=== PATIENT | male | born 1990 | race Hispanic/Latino ===

== ENCOUNTER 2020-04-05 16:42 | Day surgery (SDC) | payer OTHER ==
[~2020-04-05] VITALS: Ht 172.7 cm; Wt 80.3 kg
[2020-04-05 18:00] LABS: BASO # 0.1 10^3/uL (0.0-0.2); BASO % 0.4 % (0.0-1.0); EOS # 0.3 10^3/uL (0.0-0.5); EOS % 2.2 % (0.0-3.0); HEMATOCRIT 48.6 % (42.0-52.0); HEMOGLOBIN 15.7 g/dl (13.5-17.5); LYMPH # 3.1 10^3/uL (1.5-5.0); LYMPH % 24.9 % (24.0-44.0); MEAN CORPUSCULAR HEMOGLOBIN 29.1 pg (27.0-33.0); MEAN CORPUSCULAR HGB CONC 32.3 g/dl (32.0-36.5); MONO # 1.4 10^3/uL (0.0-0.8); MONO % 11.1 % (0.0-5.0); NEUTROPHILS # 7.7 10^3/uL (1.5-8.5); NEUTROPHILS % 61.2 % (36.0-66.0); PLATELET COUNT, AUTOMATED 239 10^3/uL (150-450); WHITE BLOOD COUNT 12.5 10^3/uL (4.0-10.0)
[2020-04-05] MEDS ORDERED: NS 1,000 ML IV ONE (18:00)
[2020-04-05] MEDS ORDERED: KETOROLAC 30 MG/ML 1ML VIAL IV ONE (18:00)
[2020-04-05] MEDS ORDERED: ONDANSETRON 4MG/2ML VIAL IV ONE (18:00)
[2020-04-05] MEDS ORDERED: ISOVUE-370 76% 100ML VIAL As Ordered ONE (18:19)
[2020-04-05 18:30] LABS: BILIRUBIN,DIRECT 0.1 MG/DL (0.0-0.2); BILIRUBIN,TOTAL 0.4 MG/DL (0.2-1.0); TOTAL PROTEIN 7.9 GM/DL (6.4-8.2)
--- NOTE | 2020-04-05 19:04 | REPVR ---
PROCEDURE INFORMATION: Exam: CT Abdomen And Pelvis With Contrast Exam date and time: 04/05/2020 6:17 PM Age: 29 years old Clinical indication: Abdominal pain; Localized; Right lower quadrant (rlq); Additional info: Right sided abd pain R/O infectious process TECHNIQUE: Imaging protocol: Computed tomography of the abdomen and pelvis with intravenous contrast. Radiation optimization: All CT scans at this facility use at least one of these dose optimization techniques: automated exposure control; mA and/or kV adjustment per patient size (includes targeted exams where dose is matched to clinical indication); or iterative reconstruction. Contrast material: ISOVUE 370; Contrast volume: 100 ml; Contrast route: INTRAVENOUS (IV); COMPARISON: No relevant prior studies available. FINDINGS: Lungs: 2 mm nodule within the posterolateral right lower lobe (image 17 of series 204) and pleural based nodule measuring 4 mm within the posterior left lower lobe (image 1 of series 204). No basilar consolidation. Liver: Unremarkable. No mass. Gallbladder and bile ducts: Unremarkable. No calcified stones. No ductal dilation. Pancreas: Unremarkable. No ductal dilation. Spleen: Unremarkable. No splenomegaly. Adrenal glands: Normal. No mass. Kidneys and ureters: Unremarkable. No stones. No hydronephrosis. Stomach and bowel: Unremarkable. No obstruction. No mucosal thickening. Appendix: The appendix is retrocecal. The appendix is dilated measuring up to 13.5 mm in diameter. There is appendix wall thickening and mucosal hyperenhancement as well as periappendiceal fluid and inflammation. The findings are consistent with acute appendicitis. No calcified appendicolith. Intraperitoneal space: Trace fluid within the posterior lower pelvis. No free intraperitoneal air. No abdominopelvic abscess. Vasculature: Unremarkable. No abdominal aortic aneurysm. Lymph nodes: Unremarkable. No enlarged lymph nodes. Urinary bladder: Unremarkable as visualized. Reproductive: Unremarkable as visualized. Bones/joints: No acute fracture. Soft tissues: Unremarkable. IMPRESSION: 1. Acute appendicitis. 2. Bilateral lower lobe pulmonary nodules measuring 2 mm and 4 mm. If the patient does not have known cancer, follow up should be based on clinical information because of the low risk of cancer in this age group. (Reference: Misbah) REFERENCES: Misbah Owusu et al. Guidelines for Management of Incidental Pulmonary Nodules Detected on CT Images: From the Fleischner Society 2017. Radiology. 2017;284(1):228-243. Electronically signed by: Tenzin Omalley On 04/05/2020 19:04:35 PM
[2020-04-05] MEDS ORDERED: KETOROLAC 60MG 2ML VIAL As Ordered ONE (19:52)
[2020-04-05] MEDS ORDERED: MIDAZOLAM INJ 2MG/2ML VIAL (J2250 PER 1MG) As Ordered ONE (19:52)
[2020-04-05] MEDS ORDERED: ACETAMINOPHEN 1000MG 100ML IV BTL (OFIRMEV) (J0131 PER 10MG) As Ordered ONE (19:52)
[2020-04-05] MEDS ORDERED: SUGAMMADEX SODIUM 500 MG/5 ML VIAL (BRIDION) As Ordered ONE (19:52)
[2020-04-05] MEDS ORDERED: dexameTHASONE 4 MG/ML 1ML VIAL (J1100 PER 1MG) As Ordered ONE (19:52)
[2020-04-05] MEDS ORDERED: fentaNYL 100 MCG/2 ML INJECTION (J3010) As Ordered ONE ×3 (19:52→22:53)
[2020-04-05] MEDS ORDERED: ROCURONIUM BROMIDE 50 MG/5 ML VIAL As Ordered ONE (19:52)
[2020-04-05] MEDS ORDERED: propofoL 200 MG/20 ML VIAL As Ordered ONE (19:52)
[2020-04-05] MEDS ORDERED: ONDANSETRON 4MG/2ML VIAL As Ordered ONE (19:52)
[2020-04-05] MEDS ORDERED: LIDOCAINE 2% 100MG/5ML SDV (FOR ANES.) As Ordered ONE (19:52)
[2020-04-05] MEDS ORDERED: BUPIVACAINE HCL 0.25% 30ML VIAL As Ordered ONE (20:25)
[2020-04-05] MEDS ORDERED: NORCO, ANEXSIA 5/325MG TABLET (HYDROcodone/ACETAMINOPHEN) PO PRN ×2 (21:30)
[2020-04-05] MEDS ORDERED: KETOROLAC 30 MG/ML 1ML VIAL IV PRN (21:30)
[2020-04-05] MEDS ORDERED: ONDANSETRON 4MG/2ML VIAL IV PRN ×2 (21:30→23:00)
[2020-04-05] MEDS ORDERED: ZOSYN 3.375GM VIAL (J2543) As Ordered ONE (21:44)
[2020-04-05] MEDS ORDERED: ESMOLOL INJ 100MG/10ML VIAL As Ordered ONE (22:00)
--- NOTE | 2020-04-05 22:01 | HPE ---
HISTORY AND PHYSICAL DATE OF ADMISSION: 04/05/2020 CHIEF COMPLAINT: Right lower quadrant pain. HISTORY OF PRESENT ILLNESS: The patient is a 29-year-old male who presents with right lower quadrant pain that started around 3:00 or 4:00 this morning. The pain is present, associated with nausea, no vomiting. He does have some chills but no fevers. No problems with urination or bowel movements. No recent travel or trauma. No changes in diet or activity or medications. No previous abdominal surgeries. PAST MEDICAL HISTORY: The patient's past medical history is negative. PAST SURGICAL HISTORY: The patient's past surgical history is negative. ALLERGIES: None. HOME MEDICATIONS: None. SOCIAL HISTORY: Denies drug, alcohol, tobacco abuse. He does smoke some marijuana. REVIEW OF SYSTEMS: Pertinent positives and negatives as stated in the HPI. FAMILY HISTORY: Noncontributory. PHYSICAL EXAMINATION: GENERAL APPEARANCE: Alert and oriented x3. In no acute distress. VITAL SIGNS: Temperature 97.4, pulse 80, respirations 17, blood pressure 112/69. Pulse oximetry 100% on room air. HEENT: Pupils are equal, round and reactive to light and accommodation. HEART: S1, S2, regular rate and rhythm. LUNGS: Clear to auscultation bilaterally. ABDOMEN: Soft, tender to palpation right lower quadrant with localized guarding and no rigidity. EXTREMITIES: No clubbing, cyanosis, or edema. LABORATORY STUDIES: White count 12.5 hemoglobin 15.7 and platelets 239. Sodium 140, potassium 3.9. COVID testing is negative. IMAGING: CT abdomen and pelvis shows acute appendicitis with dilated appendix up to 13.5 mm. There is wall thickening with mucosal enhancement as well as periappendiceal fluid and inflammation. Findings are consistent with acute appendicitis. No signs of any appendicoliths. ASSESSMENT AND PLAN: The patient again is a 29-year-old male currently with signs and symptoms consistent with acute appendicitis. Recommendation is to proceed with laparoscopic appendectomy. Risks and benefits of the procedure are not limited to but include bleeding, infection, hernia, inflammation, damage to surrounding structure, need for further surgery was discussed with the patient. Informed consent was obtained and procedure was planned. Postoperatively, we will keep him overnight because it is so late in the evening, with plan for discharge home the first thing in the morning.
[2020-04-05] MEDS ORDERED: SUCCINYLCHOLINE 100 MG/5 ML SYRINGE (J0330) As Ordered ONE (22:11)
[2020-04-05] MEDS ORDERED: HYDR-3715 PO (22:31)
[2020-04-05] MEDS ORDERED: oxyCODONE 5MG TAB As Ordered ONE (22:53)
[2020-04-05] MEDS ORDERED: oxyCODONE 5MG TAB PO PRN (23:00)
[2020-04-05] MEDS: fentaNYL 100 MCG/2 ML INJECTION (J3010) IV PRN ×2 (23:00→23:07)
[2020-04-05] MEDS ORDERED: METOCLOPRAMIDE INJ 10MG/2ML VIAL (J2765 PER 1) IV PRN (23:00)
[2020-04-05] MEDS ORDERED: LR 1,000 ML IV SCH (23:00)
[2020-04-05 23:55] VITALS: BP 115/63
[2020-04-06 00:15] VITALS: BP 108/64
[2020-04-06] MEDS: PIPERACILLIN/TAZOBACTAM SOD 3.375 GM in D5W MINI-BAG PLUS 50 ML IV SCH ×2 (00:22→06:00)
[2020-04-06] MEDS: SENOKOT S TAB PO SCH ×2 (00:22→06:56)
[2020-04-06] MEDS: NS 1,000 ML IV SCH ×2 (00:23→10:34)
[2020-04-06 00:35] VITALS: BP 108/66
[2020-04-06 02:30] VITALS: BP 101/59
[2020-04-06 03:30] VITALS: BP 106/58
[2020-04-06 06:26] LABS: BASO % 0.2 % (0.0-1.0); EOS % 0.1 % (0.0-3.0); HEMATOCRIT 47.1 % (42.0-52.0); HEMOGLOBIN 15.4 g/dl (13.5-17.5); LYMPH % 10.2 % (24.0-44.0); MEAN CORPUSCULAR HEMOGLOBIN 29.2 pg (27.0-33.0); MEAN CORPUSCULAR HGB CONC 32.7 g/dl (32.0-36.5); MEAN CORPUSCULAR VOLUME 89.4 fl (80.0-96.0); MONO # 0.2 10^3/uL (0.0-0.8); MONO % 1.5 % (0.0-5.0); NEUTROPHILS # 8.9 10^3/uL (1.5-8.5); NEUTROPHILS % 87.6 % (36.0-66.0); PLATELET COUNT, AUTOMATED 232 10^3/uL (150-450); RED BLOOD COUNT 5.27 10^6/uL (4.30-6.10); WHITE BLOOD COUNT 10.2 10^3/uL (4.0-10.0)
--- NOTE | 2020-04-06 07:43 | ED PDOC ---
Post-Departure Follow-Up radiology report faxed to Sara Feng MD Apr 06, 2020 07:43
--- NOTE | 2020-04-06 09:26 | RO ---
OPERATIVE NOTE DATE OF OPERATION: 04/05/2020 PREOPERATIVE DIAGNOSIS: Acute appendicitis. POSTOPERATIVE DIAGNOSIS: Acute appendicitis. PROCEDURE: Laparoscopic appendectomy. SURGEON: Isrrael Adler DO. STREAM CONTROL OFFICER: None. ANESTHESIA: General. ESTIMATED BLOOD LOSS: 5 mL. COMPLICATIONS: None. INDICATIONS FOR PROCEDURE: The patient is a 29-year-old male who presented with right lower quadrant pain and found to have acute appendicitis on CT. Recommendation was to proceed with laparoscopic appendectomy. The risks and benefits of the procedure not limited to, but including bleeding, infection, hernia formation, damage to surrounding structures, and need for further surgery were discussed in detail with the patient. Informed consent was obtained and procedure was planned. DESCRIPTION OF PROCEDURE: The patient was brought back to operating room 3. After sufficient sedation, the abdomen was sterilely prepped and draped. Next, a time-out was done to confirm proper patient and proper procedure. Following that, a 5-mm incision was made in the left lower quadrant and Veress needle inserted. The abdomen was then inflated up to 15 mmHg. The Veress needle was then removed. A 5-mm Optiview port was used to gain access to the abdomen. Once the abdomen was entered, an 8-mm port was placed supraumbilically in the midline and another 5-mm port suprapubically in the midline. The right lower quadrant was examined. The appendix was elevated up superiorly, and the mesoappendix was dissected down to the base of the appendix using the Enseal. Once the base was reached, it was ligated with 2 PDS Endoloops. The appendix was then amputated using the Enseal, placed inside of a 5-mm Endo Catch bag, and brought out through the supraumbilical port site. Once the appendix was removed, 0-Vicryl suture with a Kt-Leighann needle was used to close the fascia at the umbilical port site. The abdomen was then desufflated. Skin incisions were closed with 4-0 Vicryl subcuticular suture. The abdomen was cleaned and dried. Steri-Strips, 4 x 4, and tape were applied. This ended the procedure.
[2020-04-06 10:00] VITALS: BP 100/55
== END 2020-04-06 14:04 | disposition home or self-care (01) ==
LOC: M ED 16:42 → M SDC 19:49 → M MSPAV 23:45 → M SDC 04-06 14:04
PROVIDERS: ATTEND Surgery
DX: K35.80 Unspecified acute appendicitis (principal)
CPT/HCPCS: 36415; 44970; 80047; 80076; 81001; 83690; 85025; 88304; 96360; 96365; 96375; 99284; J0131; J0330; J1100; J1885; J2250; J2405; J2543; J3010; Q9967; U0002

== ENCOUNTER → 2020-05-22 | Outpatient (REF) | payer OTHER ==
[~2020-05-22] MED LIST: HYDR-3715 PO
[2020-05-22 23:49] LABS: CHLAMYDIA DNA AMPLIFICATION NEGATIVE (NEGATIVE); GC DNA AMPLIFICATION NEGATIVE (NEGATIVE)
== END ==
LOC: M WUC 19:17
PROVIDERS: ATTEND Physician Assistant
DX: R30.0 Dysuria (principal)

== ENCOUNTER 2021-02-10 15:31 | Emergency (ER) | payer OTHER, MEDICAID ==
[~2021-02-10] VITALS: Ht 172.7 cm; Wt 83.4 kg
--- OUTSIDE RECORDS SUMMARY | 2021-02-10 15:42 | CCD ---
Author Author [facility] Organization [facility] Address Unknown Phone Unavailable Care Team Providers Care Research Associate Name Role Phone Silvestre, Alaina Melvina PA Unavailable Unavailable Silvestre, Alaina Melvina PA Unavailable Unavailable Silvestre, Alaina Melvina PA Unavailable Unavailable Silvestre, Alaina Melvina PA Unavailable Unavailable Silvestre, Alaina Melvina PA Unavailable Unavailable Silvestre, Alaina Melvina PA Unavailable Unavailable Silvestre, Alaina Melvnia PA Unavailable Unavailable Silvestre, Alaina Melvina PA Unavailable Unavailable Silvestre, Alaina Melvina PA Unavailable Unavailable Silvestre, Alaina Melvina PA Unavailable Unavailable RING, K THIEN PA Unavailable Unavailable RING, K THIEN PA Unavailable Unavailable RING, K THIEN PA Unavailable Unavailable RING, K THIEN PA Unavailable Unavailable RING, K THIEN PA Unavailable Unavailable RING, K THIEN PA Unavailable Unavailable RING, K THIEN PA Unavailable Unavailable RING, K THIEN PA Unavailable Unavailable RING, K THIEN PA Unavailable Unavailable RING, K THIEN PA Unavailable Unavailable RING, K THIEN PA Unavailable Unavailable RING, K THIEN PA Unavailable Unavailable RING, K THIEN PA Unavailable Unavailable RING, K THIEN PA Unavailable Unavailable RING, K THIEN PA Unavailable Unavailable RING, K THIEN PA Unavailable Unavailable RING, K THIEN PA Unavailable Unavailable RING, K THIEN PA Unavailable Unavailable RING, K THIEN PA Unavailable Unavailable RING, K THIEN PA Unavailable Unavailable RING, K THIEN PA Unavailable Unavailable Re-disclosure Warning The records that you are about to access may contain information from federally-assisted alcohol or drug abuse programs. If such information is present, then the following federally mandated warning applies: This information has been disclosed to you from records protected by federal confidentiality rules (42 CFR part 2). The federal rules prohibit you from making any further disclosure of this information unless further disclosure is expressly permitted by the written consent of the person to whom it pertains or as otherwise permitted by 42 CFR part 2. A general authorization for the release of medical or other information is NOT sufficient for this purpose. The Federal rules restrict any use of the information to criminally investigate or prosecute any alcohol or drug abuse patient.The records that you are about to access may contain highly sensitive health information, the redisclosure of which is protected by Article 27-F of the [facility] Public Health law. If you continue you may have access to information: Regarding HIV / AIDS; Provided by facilities licensed or operated by the [facility] Office of Mental Health; or Provided by the [facility] Office for People With Developmental Disabilities. If such information is present, then the following [facility] mandated warning applies: This information has been disclosed to you from confidential records which are protected by state law. State law prohibits you from making any further disclosure of this information without the specific written consent of the person to whom it pertains, or as otherwise permitted by law. Any unauthorized further disclosure in violation of state law may result in a fine or nursing home sentence or both. A general authorization for the release of medical or other information is NOT sufficient authorization for further disc losure. Encounters Encounter Providers Location Date Indications Data Source(s ) Outpatient Attender: THIEN Beasley Primary 05/22/2020 02:20:00 PM EST [facility] ([facility], [facility]) Outpatient Attender: Melvina Beasley Prim mamie 04/22/2020 10:25:00 AM EST [facility] ([facility], [facility]) Medications Medication Brand Name Start Date Product Form Dose Route Admi nistrative Instructions Pharmacy Instructions Status Indications Reaction Description Data Source(s) Clotrimazole 10 MG/ML Topical Cream Clotrimazole 05/22/2020 12:00:00 AM EST active [facility] ([facility], [facility]) No Active Medications 04/22/2020 12:00:00 AM EST completed [facility] ([facility]) Insurance Providers Payer name Policy type / Coverage type Policy ID Covered green party ID Covered green party's relationship to mendiola Policy Mendiola [place] [id number] SP [id number] B [facility] PLAN [facility] [id number] SP [id number] [facility]([place]) O [id number] S [id number] O UNAVAILABLE UNAVAILA BLE [facility] PLAN [facility] [id number] SP [id number] Problems, Conditions, and Diagnoses No Information Surgeries/Procedures No Information Results ID Date Data Source [id number] 05/22/2020 04:47:00 PM EST [facility] ([facility]) Name Value Range Interpretation Code Description Data Dayana rce(s) Supporting Document(s) Bacteria identified in Urine by Culture Laboratory test result [facility] ([facility]) FULL REPORT IN LAB NOTES (eCW and [facility] ). NO GROWTH ID Date Data Source [id number] 05/22/2020 04:47:00 PM EST [facility] ([facility]) Name Value Range Interpretation Code Description Data Dayana rce(s) Supporting Document(s) Chlamydia Dna Amplification Laboratory test result [facility] ([facility]) A negative test result does not exclude the possibility of infection because test results may be affected by improper specimen collection, technical error, specimen mix-up, concurrent antibiotic therapy, or the number of organisms in the specimen which may be below the sensitivity of the test. GC Dna Amplification Laboratory test result [facility] ([facility]) A negative test result does not exclude the possibility of infection because test results may be affected by improper specimen collection, technical error, specimen mix-up, concurrent antibiotic therapy, or the number of organisms in the specimen which may be below the sensitivity of the test. ID Date Data Source [id number] 04/22/2020 12:00:00 AM EST [facility] Name Value Range Interpretation Code Description Data Dayana rce(s) Supporting Document(s) SARS coronavirus 2 Ag Negative [facility] This lab was ordered by [facility] and reported by [facility]. ID Date Data Source [id number] 04/05/2020 07:26:00 PM EST [facility] Name Value Range Interpretation Code Description Data Dayana rce(s) Supporting Document(s) SARS coronavirus 2 RNA [Presence] in Res piratory specimen by CALI with probe detection [facility] This lab was ordered by [facility] a nd reported by [facility]. Procedure Social History No Information Vital Signs ID Date Data Source UNK Name Value Range Interpretation Code Description Data Source(s) Systolic blood pressure 111 mm[Hg] 111 mm[Hg] M [facility] ([facility], [facility]) Diastolic blood pressure 75 mm[Hg] 75 mm[Hg] [facility] ([facility], [facility]) Heart rate 95 /min 95 /min [facility] ([facility], [facility]) Respiratory rate 12 /min 12 /min [facility] ( [facility], [facility]) Oxygen saturation in Arterial blood by Pulse oximetry 98 % 98 % [facility] ([facility], [facility]) Body temperature 98.4 [degF] 98.4 [degF] [facility] ([facility], [facility]) Body weight 160.00 [lb_av] 160.00 [lb_av] [facility] T ([facility]) Body height 68 [in_i] 68 [in_i] [facility] ([facility]) 5'8" Body mass index (BMI) [Ratio] 24.3 kg/m2 24.3 k g/m2 [facility] ([facility]) Diastolic blood pressure 75 mm[Hg] 75 mm[Hg] [facility] ([facility]) Heart rate 73 /min 73 /min [facility] ([facility], [facility]) Respiratory rate 15 /min 15 /min [facility] ( [facility], [facility]) Oxygen saturation in Arterial blood by Pulse oximetry 99 % 99 % [facility] ([facility]) Body temperature 96.9 [degF] 96.9 [degF] [facility] ([facility]) Body weight 160.00 [lb_av] 160.00 [lb_av] [facility] T ([facility]) Body mass index (BMI) [Ratio] 24.3 kg/m2 24.3 k g/m2 [facility] ([facility], [facility]) Body height 68 [in_i] 68 [in_i] [facility] ([facility], [facility]) 5'8" Systolic blood pressure 122 mm[Hg] 122 mm[Hg] M EDJIGNA ([facility], [facility])
[2021-02-10] MEDS ORDERED: ONDANSETRON 4MG/2ML VIAL IV ONE (16:45)
[2021-02-10] MEDS ORDERED: NS 1,000 ML IV ONE (16:45)
[2021-02-10 17:20] LABS: BASO % 0.2 % (0.0-1.0); EOS # 0.1 10^3/uL (0.0-0.5); EOS % 1.2 % (0.0-3.0); HEMATOCRIT 48.9 % (42.0-52.0); HEMOGLOBIN 16.5 g/dl (13.5-17.5); LYMPH # 1.2 10^3/uL (1.5-5.0); LYMPH % 10.7 % (24.0-44.0); MEAN CORPUSCULAR HEMOGLOBIN 29.9 pg (27.0-33.0); MEAN CORPUSCULAR HGB CONC 33.7 g/dl (32.0-36.5); MEAN CORPUSCULAR VOLUME 88.6 fl (80.0-96.0); MONO # 1.2 10^3/uL (0.0-0.8); MONO % 10.7 % (2.0-8.0); NEUTROPHILS # 8.6 10^3/uL (1.5-8.5); PLATELET COUNT, AUTOMATED 194 10^3/uL (150-450); RED BLOOD COUNT 5.52 10^6/uL (4.30-6.10); WHITE BLOOD COUNT 11.2 10^3/uL (4.0-10.0)
--- OUTSIDE RECORDS SUMMARY | 2021-02-10 17:30 | CCD ---
Author Author [facility] Organization [facility] Address Unknown Phone Unavailable Care Team Providers Care Deputy Sheriff Generalist/Bailiff Name Role Phone Silvestre, Alaina Melvina PA [...] is protected by Article 27-F of the [facility] Public Health law. If you continue you may have access to information: Regarding HIV / AIDS; Provided by facilities licensed or operated by the [facility] Office of Mental Health; or Provided by the [facility] Office for People With Developmental Disabilities. If such information is present, then the following [facility] mandated warning applies: This information has [...] law may result in a fine or penitentiary sentence or both. A general authorization for the release of medical or other information is NOT sufficient authorization for further disc losure. Encounters Encounter Providers Location Date Indications Data Source(s ) Outpatient Attender: THIEN Beasley Primary 05/22/2020 02:20:00 PM EST [facility] ([facility], [facility]) Outpatient Attender: Melvina Beasley Prim mamie 04/22/2020 10:25:00 AM EST [facility] ([facility], [facility]) Medications Medication Brand Name Start Date Product Form Dose Route Admi nistrative Instructions Pharmacy Instructions Status Indications Reaction Description Data Source(s) Clotrimazole 10 MG/ML Topical Cream Clotrimazole 05/22/2020 12:00:00 AM EST active [facility] ([facility], [facility]) No Active Medications 04/22/2020 12:00:00 AM EST completed [facility] ([facility]) Insurance Providers Payer name Policy type / Coverage type Policy ID Covered democrat ID Covered democrat's relationship to mendiola Policy Mendiola [place] [id number] SP [id number] B [facility] PLAN [facility] [id number] SP [id number] [facility]([place]) O [id number] S [id number] O UNAVAILABLE UNAVAILA BLE [facility] PLAN [facility] [id number] SP [id number] Problems, Conditions, and Diagnoses No Information Surgeries/Procedures No Information Results ID Date Data Source [id number] 05/22/2020 04:47:00 PM EST [facility] ([facility]) Name Value Range Interpretation Code Description Data Dayana rce(s) Supporting Document(s) Bacteria identified in Urine by Culture Laboratory test result [facility] ([facility]) FULL REPORT IN LAB NOTES ([facility] and [facility] ). NO GROWTH ID Date Data Source [id number] 05/22/2020 04:47:00 PM EST [facility] ([facility]) Name Value Range Interpretation Code Description Data Dayana rce(s) Supporting Document(s) Chlamydia Dna Amplification Laboratory test result [facility] ([facility]) A negative test result does not exclude the possibility of infection because test results may be affected by improper specimen collection, technical error, specimen mix-up, concurrent antibiotic therapy, or the number of organisms in the specimen which may be below the sensitivity of the test. GC Dna Amplification Laboratory test result [facility] ([facility]) A negative test result does not exclude the possibility of infection because test results may be affected by improper specimen collection, technical error, specimen mix-up, concurrent antibiotic therapy, or the number of organisms in the specimen which may be below the sensitivity of the test. ID Date Data Source [id number] 04/22/2020 12:00:00 AM EST [facility] Name Value Range Interpretation Code Description Data Dayana rce(s) Supporting Document(s) SARS coronavirus 2 Ag Negative [facility] This lab was ordered by [facility] and reported by [facility]. ID Date Data Source [id number] 04/05/2020 07:26:00 PM EST [facility] Name Value Range Interpretation Code Description Data Dayana rce(s) Supporting Document(s) SARS coronavirus 2 RNA [Presence] in Res piratory specimen by CALI with probe detection [facility] This lab was ordered by [facility] a nd reported by [facility]. Procedure Social History No Information Vital Signs ID Date Data Source UNK Name Value Range Interpretation Code Description Data Source(s) Systolic blood pressure 111 mm[Hg] 111 mm[Hg] M [facility] ([facility], [facility]) Diastolic blood pressure 75 mm[Hg] 75 mm[Hg] [facility] ([facility], [facility]) Heart rate 95 /min 95 /min [facility] ([facility], [facility]) Respiratory rate 12 /min 12 /min [facility] ( [facility], [facility]) Oxygen saturation in Arterial blood by Pulse oximetry 98 % 98 % [facility] ([facility], [facility]) Body temperature 98.4 [degF] 98.4 [degF] [facility] ([facility], [facility]) Body weight 160.00 [lb_av] 160.00 [lb_av] [facility] T ([facility]) Body height 68 [in_i] 68 [in_i] [facility] ([facility]) 5'8" Body mass index (BMI) [Ratio] 24.3 kg/m2 24.3 k g/m2 [facility] ([facility]) Diastolic blood pressure 75 mm[Hg] 75 mm[Hg] [facility] ([facility]) Heart rate 73 /min 73 /min [facility] ([facility], [facility]) Respiratory rate 15 /min 15 /min [facility] ( [facility], [facility]) Oxygen saturation in Arterial blood by Pulse oximetry 99 % 99 % [facility] ([facility]) Body temperature 96.9 [degF] 96.9 [degF] [facility] ([facility]) Body weight 160.00 [lb_av] 160.00 [lb_av] [facility] T ([facility]) Body mass index (BMI) [Ratio] 24.3 kg/m2 24.3 k g/m2 [facility] ([facility], [facility]) Systolic blood pressure 122 mm[Hg] 122 mm[Hg] M EDJIGNA ([facility], [facility]) Body height 68 [in_i] 68 [in_i] [facility] ([facility], [facility]) 5'8"
[2021-02-10] MEDS ORDERED: ISOVUE-370 76% 100ML VIAL As Ordered ONE (17:33)
[2021-02-10 17:47] LABS: ALBUMIN 3.9 GM/DL (3.2-5.2); BILIRUBIN,DIRECT 0.1 MG/DL (0.0-0.2); BILIRUBIN,TOTAL 0.6 MG/DL (0.2-1.0); TOTAL PROTEIN 7.6 GM/DL (6.4-8.2)
--- NOTE | 2021-02-10 19:09 | REPVR ---
PROCEDURE INFORMATION: Exam: CT Abdomen And Pelvis With Contrast Exam date and time: 02/10/2021 5:42 PM Age: 30 years old Clinical indication: Abdominal pain; Prior surgery TECHNIQUE: Imaging protocol: Computed tomography of the abdomen and pelvis with contrast. Axial, coronal and sagittal reformatted images were created and reviewed. Radiation optimization: All CT scans at this facility use at least one of these dose optimization techniques: automated exposure control; mA and/or kV adjustment per patient size (includes targeted exams where dose is matched to clinical indication); or iterative reconstruction. Contrast material: ISOVUE 370; Contrast volume: 100 ml; Contrast route: INTRAVENOUS (IV); COMPARISON: CT ABD/PEL W/IV CONTRAST ONLY 04/05/2020 6:12 PM FINDINGS: Liver: Mild hepatic steatosis. Gallbladder and bile ducts: No radiodense gallstones. No biliary ductal dilatation. Pancreas: Unremarkable. Spleen: Unremarkable. Adrenal glands: Normal. No mass. Kidneys and ureters: No mass. No radiodense calculi. No hydronephrosis. Stomach and bowel: Mild small bowel wall thickening and hyperemia, predominantly in the right lower quadrant. No obstruction. No pneumatosis. Appendix: Appendix not identified with certainty but no right lower quadrant inflammatory change to suggest acute appendicitis. Intraperitoneal space: Trace nonspecific free pelvic fluid, likely reactive. No organized fluid collection. No free air. Vasculature: Unremarkable. No aneurysm. Lymph nodes: Small mesenteric lymph nodes, likely reactive. No pathologically enlarged lymph nodes. Urinary bladder: Unremarkable as visualized. Reproductive: Unremarkable. Bones/joints: No acute osseous abnormality. Soft tissues: Unremarkable. IMPRESSION: 1. Mild nonspecific enteritis, as described above. 2. Additional findings, as above. Electronically signed by: Damion Contreras On 02/10/2021 19:09:23 PM
[2021-02-10] MEDS ORDERED: ONDA4TAB6 PO (19:46)
[2021-02-10 20:16] VITALS: BP 121/70
== END 2021-02-10 20:33 | disposition home or self-care (01) ==
LOC: M ED 15:31
DX: K52.9 Noninfective gastroenteritis and colitis, unspecified (principal); K76.0 Fatty (change of) liver, not elsewhere classified
CPT/HCPCS: 74177; 80047; 80076; 82150; 83605; 83690; 85025; 87040; 93041; 96361; 96374; 99284; J2405; Q9967

== ENCOUNTER → 2021-10-07 | Outpatient (REF) ==
[~2021-10-07] MED LIST changes: +ONDA4TAB6 PO
== END ==
LOC: M LABSMTC 10:06
PROVIDERS: ATTEND Family Medicine
DX: Z11.52 Encounter for screening for COVID-19 (principal)

== ENCOUNTER 2022-03-11 13:51 | Emergency (ER) | payer MEDICAID, OTHER ==
[~2022-03-11] VITALS: Ht 172.7 cm; Wt 82.6 kg
[2022-03-11 13:54] VITALS: BP 126/58
[2022-03-11] MEDS ORDERED: NS 1,000 ML IV ONE (18:20)
[2022-03-11] MEDS ORDERED: ONDANSETRON 4MG 2ML VIAL IV ONE (18:20)
[2022-03-11 19:10] LABS: BASO % 0.2 % (0.0-1.0); EOS # 0.1 10^3/uL (0.0-0.5); EOS % 0.7 % (0.0-3.0); HEMATOCRIT 50.3 % (42.0-52.0); HEMOGLOBIN 16.5 g/dl (13.5-17.5); LYMPH # 1.1 10^3/uL (1.5-5.0); LYMPH % 11.6 % (24.0-44.0); MEAN CORPUSCULAR HEMOGLOBIN 29.1 pg (27.0-33.0); MEAN CORPUSCULAR HGB CONC 32.8 g/dl (32.0-36.5); MEAN CORPUSCULAR VOLUME 88.7 fl (80.0-96.0); MONO % 10.7 % (2.0-8.0); NEUTROPHILS # 7.2 10^3/uL (1.5-8.5); NEUTROPHILS % 76.5 % (36.0-66.0); PLATELET COUNT, AUTOMATED 213 10^3/uL (150-450); RED BLOOD COUNT 5.67 10^6/uL (4.30-6.10); WHITE BLOOD COUNT 9.4 10^3/uL (4.0-10.0)
[2022-03-11 19:43] LABS: RSV AMPLIFICATION NEGATIVE (NEGATIVE)
[2022-03-11 19:45] LABS: LIPASE 34 U/L (12-53)
[2022-03-11 19:47] LABS: ALKALINE PHOSPHATASE 68 U/L (46-116); ALT/SGPT 45 U/L (7.0-40); AST/SGOT 30 U/L (<34); BILIRUBIN,DIRECT 0.2 MG/DL (<0.4); BILIRUBIN,TOTAL 0.6 MG/DL (0.3-1.2); BLOOD UREA NITROGEN 18 MG/DL (9-23); CALCIUM LEVEL 8.2 MG/DL (8.5-10.1); CARBON DIOXIDE LEVEL 29 MMOL/L (20-31); CHLORIDE LEVEL 102 MMOL/L (98-107); CREATININE FOR GFR 1.02 MG/DL (0.70-1.30); GLOMERULAR FILTRATION RATE > 60.0 (>60); GLUCOSE, FASTING 94 MG/DL (60-100); POTASSIUM SERUM 4.1 MMOL/L (3.5-5.1); SODIUM LEVEL 139 MMOL/L (136-145); TOTAL PROTEIN 7.5 G/DL (5.7-8.2)
[2022-03-11] MEDS ORDERED: ISOVUE-370 76% 100ML VIAL As Ordered ONE (19:59)
[2022-03-11] MEDS ORDERED: ONDA4TAB6 PO (21:03)
== END 2022-03-11 22:02 | disposition home or self-care (01) ==
LOC: M ED 13:51
DX: A08.4 Viral intestinal infection, unspecified (principal); F12.10 Cannabis abuse, uncomplicated; F10.10 Alcohol abuse, uncomplicated
CPT/HCPCS: 74177; 80048; 80076; 83690; 85025; 87631; 96361; 96374; 99283; J2405

== ENCOUNTER → 2022-07-24 | Outpatient (CLI) | payer OTHER | LOC: M RAD 09:01 | PROVIDERS: ATTEND Physician Assistant | DX: R00.2 Palpitations (principal); R53.83 Other fatigue; R06.83 Snoring; R06.00 Dyspnea, unspecified; R40.0 Somnolence ==

== ENCOUNTER → 2022-07-26 | Outpatient (REF) | payer OTHER ==
[2022-07-26 17:32] LABS: ALBUMIN 4.1 G/DL (3.2-5.2); ALKALINE PHOSPHATASE 78 U/L (46-116); ALT/SGPT 56 U/L (7.0-40); AST/SGOT 26 U/L (<34); BILIRUBIN,TOTAL 0.7 MG/DL (0.3-1.2); BLOOD UREA NITROGEN 14 MG/DL (9-23); CALCIUM LEVEL 9.1 MG/DL (8.5-10.1); CARBON DIOXIDE LEVEL 31 MMOL/L (20-31); CHLORIDE LEVEL 100 MMOL/L (98-107); CHOLESTEROL LEVEL 191 MG/DL (<200); CREATININE FOR GFR 0.99 MG/DL (0.70-1.30); GLOMERULAR FILTRATION RATE > 60.0 (>60); GLUCOSE, FASTING 75 MG/DL (60-100); HDL CHOLESTEROL 38.2 MG/DL (>40); LDL CHOLESTEROL 125.4 MG/DL (<100); NON-HDL-C 152.8 MG/DL; POTASSIUM SERUM 4.6 MMOL/L (3.5-5.1); SODIUM LEVEL 135 MMOL/L (136-145); TOTAL PROTEIN 8.1 G/DL (5.7-8.2); TRIGLYCERIDES LEVEL 137 MG/DL (<150)
[2022-07-26 17:34] LABS: THYROID STIMULATING HORMONE 0.532 uIU/ML (0.55-4.78)
[2022-07-26 18:01] LABS: HEMATOCRIT 49.9 % (42.0-52.0); HEMOGLOBIN 16.1 g/dl (13.5-17.5); MEAN CORPUSCULAR HEMOGLOBIN 28.9 pg (27.0-33.0); MEAN CORPUSCULAR HGB CONC 32.3 g/dl (32.0-36.5); MEAN CORPUSCULAR VOLUME 89.6 fl (80.0-96.0); PLATELET COUNT, AUTOMATED 266 10^3/uL (150-450); RED BLOOD COUNT 5.57 10^6/uL (4.30-6.10); WHITE BLOOD COUNT 6.6 10^3/uL (4.0-10.0)
== END ==
LOC: M LAB REF 16:33
PROVIDERS: ATTEND Physician Assistant
DX: Z83.3 Family history of diabetes mellitus (principal); Z13.220 Encounter for screening for lipoid disorders; Z13.1 Encounter for screening for diabetes mellitus; R53.83 Other fatigue; R40.0 Somnolence; R06.83 Snoring; R06.00 Dyspnea, unspecified; R00.2 Palpitations

== ENCOUNTER → 2023-01-14 | Outpatient (CLI) | payer OTHER ==
[2023-01-14 11:52] LABS: BASO # 0.1 10^3/uL (0.0-0.2); BASO % 0.7 % (0.0-1.0); EOS # 0.4 10^3/uL (0.0-0.5); HEMATOCRIT 48.7 % (42.0-52.0); HEMOGLOBIN 15.9 g/dl (13.5-17.5); LYMPH # 2.5 10^3/uL (1.5-5.0); LYMPH % 30.3 % (24.0-44.0); MEAN CORPUSCULAR HEMOGLOBIN 29.1 pg (27.0-33.0); MEAN CORPUSCULAR HGB CONC 32.6 g/dl (32.0-36.5); MEAN CORPUSCULAR VOLUME 89.2 fl (80.0-96.0); MONO # 0.8 10^3/uL (0.0-0.8); NEUTROPHILS # 4.4 10^3/uL (1.5-8.5); NEUTROPHILS % 53.9 % (36.0-66.0); PLATELET COUNT, AUTOMATED 238 10^3/uL (150-450); RED BLOOD COUNT 5.46 10^6/uL (4.30-6.10); WHITE BLOOD COUNT 8.2 10^3/uL (4.0-10.0)
[2023-01-14 12:23] LABS: CK-MB VALUE MASS 1.5 NG/ML (<3.6)
[2023-01-14 12:26] LABS: ALBUMIN 3.9 G/DL (3.2-5.2); ALKALINE PHOSPHATASE 78 U/L (46-116); ALT/SGPT 40 U/L (7.0-40); AST/SGOT 20 U/L (<34); BILIRUBIN,TOTAL 0.3 MG/DL (0.3-1.2); BLOOD UREA NITROGEN 17 MG/DL (9-23); CALCIUM LEVEL 9.2 MG/DL (8.5-10.1); CARBON DIOXIDE LEVEL 30 MMOL/L (20-31); CHLORIDE LEVEL 106 MMOL/L (98-107); CREATININE FOR GFR 0.96 MG/DL (0.70-1.30); GLOMERULAR FILTRATION RATE > 60.0 (>60); GLUCOSE, FASTING 72 MG/DL (60-100); POTASSIUM SERUM 4.4 MMOL/L (3.5-5.1); SODIUM LEVEL 141 MMOL/L (136-145); THYROID STIMULATING HORMONE 0.703 uIU/ML (0.55-4.78); TOTAL PROTEIN 7.2 G/DL (5.7-8.2)
[2023-01-14 12:32] LABS: CPK CREATINE PHOSPHOKINASE 220 U/L (46-171); MB/CK RELATIVE INDEX 0.68 (< OR =4)
== END ==
LOC: M WUC 10:24
PROVIDERS: ATTEND Physician Assistant
DX: R07.9 Chest pain, unspecified (principal)

== ENCOUNTER 2023-02-03 02:32 | Emergency (ER) | payer OTHER ==
[~2023-02-03] VITALS: Ht 172.7 cm; Wt 82.9 kg
[2023-02-03 02:32] VITALS: BP 145/67; TEMP 98.5; O2SAT 100
[2023-02-03] MEDS ORDERED: KETOROLAC 60MG 2ML VIAL IM ONE (03:55)
[2023-02-03] MEDS ORDERED: DERMABOND TOPICAL SKIN ADHESIVE TOP ONE (06:30)
== END 2023-02-03 08:48 | disposition home or self-care (01) ==
LOC: M ED 02:32
DX: S01.01XA Laceration without foreign body of scalp, initial encounter (principal); Y04.0XXA Assault by unarmed brawl or fight, initial encounter; Y92.410 Unspecified street and highway as the place of occurrence of the external cause; Y93.89 Activity, other specified; Y99.9 Unspecified external cause status
CPT/HCPCS: 12001; 70450; 96372; 99282; J1885

== ENCOUNTER → 2023-04-26 | Outpatient (REF) | payer OTHER ==
[2023-04-26 18:42] LABS: RSV AMPLIFICATION NEGATIVE (NEGATIVE)
== END ==
LOC: M LAB REF 17:39
PROVIDERS: ATTEND Physician Assistant
DX: J06.9 Acute upper respiratory infection, unspecified (principal)

== ENCOUNTER → 2023-06-27 | Outpatient (REF) | payer OTHER | LOC: M LAB REF 11:16 | PROVIDERS: ATTEND Nurse Practitioner Family | DX: J02.9 Acute pharyngitis, unspecified (principal) ==

== ENCOUNTER → 2023-08-27 | Outpatient (REF) | payer OTHER ==
[2023-08-27 18:06] LABS: HEMATOCRIT 45.4 % (42.0-52.0); HEMOGLOBIN 15.1 g/dl (13.5-17.5); MEAN CORPUSCULAR HEMOGLOBIN 29.2 pg (27.0-33.0); MEAN CORPUSCULAR HGB CONC 33.3 g/dl (32.0-36.5); MEAN CORPUSCULAR VOLUME 87.6 fl (80.0-96.0); PLATELET COUNT, AUTOMATED 241 10^3/uL (150-450); RED BLOOD COUNT 5.18 10^6/uL (4.30-6.10)
[2023-08-27 18:35] LABS: ALBUMIN 3.6 G/DL (3.2-5.2); ALKALINE PHOSPHATASE 75 U/L (46-116); ALT/SGPT 36 U/L (7.0-40); AST/SGOT 15 U/L (<34); BILIRUBIN,TOTAL 0.5 MG/DL (0.3-1.2); BLOOD UREA NITROGEN 16 MG/DL (9-23); CARBON DIOXIDE LEVEL 27 MMOL/L (20-31); CHLORIDE LEVEL 105 MMOL/L (98-107); CHOLESTEROL LEVEL 177 MG/DL (<200); CHOLESTEROL RISK RATIO 4.51 (<5); CREATININE FOR GFR 0.93 MG/DL (0.70-1.30); GLOMERULAR FILTRATION RATE > 60.0 (>60); GLUCOSE, FASTING 86 MG/DL (60-100); HDL CHOLESTEROL 39.2 MG/DL (>40); LDL CHOLESTEROL 111.8 MG/DL (<100); NON-HDL-C 137.8 MG/DL; POTASSIUM SERUM 5.2 MMOL/L (3.5-5.1); SODIUM LEVEL 137 MMOL/L (136-145); TOTAL PROTEIN 7.1 G/DL (5.7-8.2); TRIGLYCERIDES LEVEL 130 MG/DL (<150)
[2023-08-27 18:37] LABS: THYROID STIMULATING HORMONE 0.964 uIU/ML (0.55-4.78)
== END ==
LOC: M LAB REF 16:32
PROVIDERS: ATTEND Physician Assistant
DX: R53.83 Other fatigue (principal); Z83.3 Family history of diabetes mellitus; Z13.220 Encounter for screening for lipoid disorders; Z13.1 Encounter for screening for diabetes mellitus

== ENCOUNTER → 2023-09-05 | Outpatient (REF) | payer OTHER ==
[~2023-09-05] MED LIST changes: +ONDA-282 PO; -ONDA4TAB6 PO
== END ==
LOC: M LAB REF 12:38
PROVIDERS: ATTEND Nurse Practitioner Family
DX: J06.9 Acute upper respiratory infection, unspecified (principal)

== ENCOUNTER → 2023-09-29 | Outpatient (REF) | payer OTHER | LOC: M LAB REF 11:27 | PROVIDERS: ATTEND Nurse Practitioner Family | DX: R19.7 Diarrhea, unspecified (principal); R10.30 Lower abdominal pain, unspecified ==

== ENCOUNTER → 2023-12-02 | Outpatient (CLI) | payer OTHER ==
[2023-12-02 13:34] LABS: HEPATITIS C VIRUS ABY INDEX < 0.02 INDEX (<0.8)
== END ==
LOC: M LAB 11:55
PROVIDERS: ATTEND Physician Assistant
DX: R06.00 Dyspnea, unspecified (principal); Z11.3 Encounter for screening for infections with a predominantly sexual mode of transmission; Z86.16 Personal history of COVID-19; Z11.59 Encounter for screening for other viral diseases

== ENCOUNTER → 2024-01-13 | Outpatient (REF) | payer OTHER | LOC: M LAB REF 16:11 | PROVIDERS: ATTEND Nurse Practitioner Family | DX: R31.9 Hematuria, unspecified (principal) ==

== ENCOUNTER → 2024-01-19 | Outpatient (REF) | payer OTHER ==
[2024-01-19 16:44] LABS: APPEARANCE, URINE HAZY (CLEAR); BACTERIA, URINE AUTO NEGATIVE (NEGATIVE); BILIRUBIN, URINE AUTO NEGATIVE (NEGATIVE); BLOOD, URINE BLOOD 2+ (NEGATIVE); COLOR, URINE YELLOW (YELLOW); GLUCOSE, URINE (UA) AUTO NEGATIVE (NEGATIVE); KETONE, URINE AUTO NEGATIVE (NEGATIVE); LEUKOCYTE ESTERASE, URINE AUTO NEGATIVE (NEGATIVE); MUCUS, URINE SMALL (NEGATIVE); NITRITE, URINE AUTO NEGATIVE (NEGATIVE); PROTEIN, URINE AUTO NEGATIVE (NEGATIVE); RBC, URINE AUTO 4 /HPF (0-3); SPECIFIC GRAVITY URINE AUTO 1.025 (1.002-1.035); SQUAMOUS EPITHELIAL CELL UR AU 0 /HPF (0-6); UROBILINOGEN, URINE AUTO 0.2 mg/dL (0.0-2.0); WBC, URINE AUTO 1 /HPF (0-3)
== END ==
LOC: M LAB REF 16:12
PROVIDERS: ATTEND Physician Assistant
DX: R31.29 Other microscopic hematuria (principal); E87.5 Hyperkalemia

== ENCOUNTER → 2024-02-12 | Outpatient (CLI) | payer OTHER | LOC: M SLEEP HO 11:27 | PROVIDERS: ATTEND Physician Assistant | DX: G47.9 Sleep disorder, unspecified (principal); R40.0 Somnolence | CPT/HCPCS: G0399 ×2 ==

== ENCOUNTER → 2024-03-18 | Outpatient (REF) | payer OTHER ==
[2024-03-18 16:37] LABS: APPEARANCE, URINE CLEAR (CLEAR); BACTERIA, URINE AUTO NEGATIVE (NEGATIVE); BILIRUBIN, URINE AUTO NEGATIVE (NEGATIVE); BLOOD, URINE BLOOD 2+ (NEGATIVE); COLOR, URINE YELLOW (YELLOW); GLUCOSE, URINE (UA) AUTO NEGATIVE (NEGATIVE); KETONE, URINE AUTO NEGATIVE (NEGATIVE); LEUKOCYTE ESTERASE, URINE AUTO NEGATIVE (NEGATIVE); MUCUS, URINE SMALL (NEGATIVE); NITRITE, URINE AUTO NEGATIVE (NEGATIVE); PROTEIN, URINE AUTO NEGATIVE (NEGATIVE); RBC, URINE AUTO 15 /HPF (0-3); SPECIFIC GRAVITY URINE AUTO 1.027 (1.002-1.035); SQUAMOUS EPITHELIAL CELL UR AU 0 /HPF (0-6); UROBILINOGEN, URINE AUTO 0.2 mg/dL (0.0-2.0); WBC, URINE AUTO 1 /HPF (0-3)
[2024-03-18 17:49] LABS: Trichomonas vaginalis (AMP) NOT DETECTED (NEGATIVE)
[2024-03-18 18:12] LABS: GC DNA AMPLIFICATION NEGATIVE (NEGATIVE)
== END ==
LOC: M LAB REF 16:10
PROVIDERS: ATTEND Physician Assistant
DX: Z11.3 Encounter for screening for infections with a predominantly sexual mode of transmission (principal); N89.9 Noninflammatory disorder of vagina, unspecified; R31.29 Other microscopic hematuria

== ENCOUNTER → 2024-04-01 | Outpatient (CLI) | payer OTHER ==
[2024-04-01 12:38] LABS: BASO % 0.2 % (0.0-1.0); EOS # 0.1 10^3/uL (0.0-0.5); EOS % 0.8 % (0.0-3.0); HEMATOCRIT 50.6 % (42.0-52.0); HEMOGLOBIN 16.8 g/dl (13.5-17.5); LYMPH # 1.4 10^3/uL (1.5-5.0); MEAN CORPUSCULAR HEMOGLOBIN 29.9 pg (27.0-33.0); MEAN CORPUSCULAR HGB CONC 33.2 g/dl (32.0-36.5); MEAN CORPUSCULAR VOLUME 90.2 fl (80.0-96.0); MONO # 1.1 10^3/uL (0.0-0.8); MONO % 12.3 % (2.0-8.0); NEUTROPHILS # 6.5 10^3/uL (1.5-8.5); NEUTROPHILS % 71.4 % (36.0-66.0); PLATELET COUNT, AUTOMATED 217 10^3/uL (150-450); RED BLOOD COUNT 5.61 10^6/uL (4.30-6.10); WHITE BLOOD COUNT 9.1 10^3/uL (4.0-10.0)
[2024-04-01 12:45] LABS: LIPASE 34 U/L (12-53)
[2024-04-01 12:47] LABS: ALBUMIN 3.7 G/DL (3.2-5.2); ALKALINE PHOSPHATASE 66 U/L (40-129); ALT/SGPT 27 U/L (7.0-40); AST/SGOT 14 U/L (<34); BILIRUBIN,TOTAL 0.7 MG/DL (0.3-1.2); BLOOD UREA NITROGEN 20 MG/DL (9-23); CARBON DIOXIDE LEVEL 30 MMOL/L (20-31); CHLORIDE LEVEL 102 MMOL/L (98-107); CREATININE FOR GFR 1.26 MG/DL (0.70-1.30); GLOMERULAR FILTRATION RATE > 60.0 (>60); GLUCOSE, FASTING 94 MG/DL (60-100); POTASSIUM SERUM 4.2 MMOL/L (3.5-5.1); SODIUM LEVEL 139 MMOL/L (136-145); TOTAL PROTEIN 7.3 G/DL (5.7-8.2)
== END ==
LOC: M WUC 09:26
PROVIDERS: ATTEND Student in an Organized Health Care Education/Training Program
DX: R10.30 Lower abdominal pain, unspecified (principal)

== ENCOUNTER → 2024-04-19 | Outpatient (CLI) | payer OTHER ==
[2024-04-19 17:01] LABS: BASO % 0.4 % (0.0-1.0); EOS # 0.1 10^3/uL (0.0-0.5); EOS % 1.8 % (0.0-3.0); HEMATOCRIT 46.7 % (42.0-52.0); HEMOGLOBIN 15.6 g/dl (13.5-17.5); LYMPH # 2.2 10^3/uL (1.5-5.0); LYMPH % 31.7 % (24.0-44.0); MEAN CORPUSCULAR HEMOGLOBIN 29.2 pg (27.0-33.0); MEAN CORPUSCULAR HGB CONC 33.4 g/dl (32.0-36.5); MEAN CORPUSCULAR VOLUME 87.5 fl (80.0-96.0); MONO # 0.8 10^3/uL (0.0-0.8); NEUTROPHILS # 3.7 10^3/uL (1.5-8.5); NEUTROPHILS % 54.8 % (36.0-66.0); PLATELET COUNT, AUTOMATED 232 10^3/uL (150-450); RED BLOOD COUNT 5.34 10^6/uL (4.30-6.10); WHITE BLOOD COUNT 6.8 10^3/uL (4.0-10.0)
[2024-04-19 17:31] LABS: BLOOD UREA NITROGEN 17 MG/DL (9-23); CALCIUM LEVEL 9.1 MG/DL (8.5-10.1); CARBON DIOXIDE LEVEL 29 MMOL/L (20-31); CHLORIDE LEVEL 105 MMOL/L (98-107); CREATININE FOR GFR 1.09 MG/DL (0.70-1.30); GLOMERULAR FILTRATION RATE > 60.0 (>60); GLUCOSE, FASTING 95 MG/DL (60-100); POTASSIUM SERUM 4.9 MMOL/L (3.5-5.1); SODIUM LEVEL 141 MMOL/L (136-145)
== END ==
LOC: M WUC 11:21
PROVIDERS: ATTEND Physician Assistant
DX: R31.29 Other microscopic hematuria (principal)